=== PATIENT | male | born 1940 | race African-American/Black ===

== ENCOUNTER 2016-08-31 14:14 | Inpatient (IN) | payer MEDICARE, OTHER ==
[2016-08-31] VITALS (13 sets, daily range): BP systolic 110–189; BP diastolic 58–87; PULSE 76–107; RESP 18–28; TEMP 97.8; O2SAT 68–98
[~2016-08-31] VITALS: Ht 165.1 cm; Wt 59.3 kg
[~2016-08-31 14:14] MED LIST: ASPI81CH CHEW; CARD120C4 PO; HYDR-3535 PO; LOVA20TA PO; PRED5TAB PO
[2016-08-31] MEDS ORDERED: methylPREDNISolone SOD SUCC 125 MG/2 ML VIAL IVP ONE (14:30)
[2016-08-31] MEDS ORDERED: MAGNESIUM SULFATE 1 GM PREMIX 100 ML IV ONE (14:30)
[2016-08-31] MEDS ORDERED: SODIUM CHLOR 0.9% 1000 ML INJ 1,000 ML IV ONE (14:30)
[2016-08-31] MEDS ORDERED: SODIUM CHLORIDE 0.9% FLUSH 5 ML FLUSH IVF PRN (14:30)
[2016-08-31] MEDS: RESP: ALBUTEROL 2.5 MG/IPRATROPIUM 0.5 MG NEB (SCH) INH ×2 (14:39→22:52)
[2016-08-31 15:44] LABS: AUTOMATED NEUTROPHIL # 7.3 TH/MM3 (1.8-7.7); BASOPHIL % 0.2 % (0.0-2.0); EOSINOPHIL % 0.3 % (0.0-4.0); HEMATOCRIT 43.5 % (39.0-51.0); HEMO FLAGS DIFF FINAL; LYMPH % 17.8 % (9.0-44.0); LYMPHOCYTE # 1.9 TH/MM3 (1.0-4.8); MEAN CELL VOLUME 95.3 FL (80.0-100.0); MEAN CORPUSCULAR HEMOGLOBIN 31.4 PG (27.0-34.0); MONO % 12.4 % (0.0-8.0); NEUT % 69.3 % (16.0-70.0); PLATELET COUNT 261 TH/MM3 (150-450); RED BLOOD COUNT 4.56 MIL/MM3 (4.50-5.90); RED CELL DISTRIBUTION WIDTH 15.4 % (11.6-17.2); WHITE BLOOD COUNT 10.6 TH/MM3 (4.0-11.0)
[2016-08-31 16:01] LABS: APTT (PATIENT) 31.3 SEC (24.3-30.1); INTERNATIONAL NORMALIZED RATIO 0.9 RATIO; PROTHROMBIN TIME - PATIENT 10.1 SEC (9.8-11.6)
--- NOTE | 2016-08-31 16:14 | RADRPT ---
EXAM DATE/TIME: 08/31/2016 14:48 [facility] COMPARISON: CHEST SINGLE AP, August 04, 2016, 11:47. INDICATIONS : Short of breath. MEDICAL HISTORY : unobtainable SURGICAL HISTORY : unobtainable ENCOUNTER: Initial ACUITY: 1 day PAIN SCORE: 1/10 LOCATION: Bilateral upper chest FINDINGS: A single view of the chest demonstrates the lungs to be symmetrically aerated without evidence of mas s, infiltrate or effusion. The cardiomediastinal contours are unremarkable. Osseous structures are intact. CONCLUSION: Normal examination for a patient of this age. No significant change has occurred. Jan Monson MD on August 31, 2016 at 16:12 Board Certified Radiologist. This report was verified electronically.
[2016-08-31 16:30] LABS: ALKALINE PHOSPHATASE 116 U/L (45-117); ALT (GPT) 32 U/L (12-78); ANION GAP 5 MEQ/L (5-15); AST (GOT) 26 U/L (15-37); BICARBONATE 33.5 MEQ/L (21.0-32.0); BLOOD UREA NITROGEN 12 MG/DL (7-18); CHLORIDE 101 MEQ/L (98-107); CREATINE KINASE 144 U/L (39-308); GLOMERULAR FILTRATION RATE 131 ML/MIN (>89); MAGNESIUM 2.2 MG/DL (1.5-2.5); POTASSIUM 4.2 MEQ/L (3.5-5.1); SODIUM (NA) 139 MEQ/L (136-145); TOTAL BILIRUBIN ADULT 0.5 MG/DL (0.2-1.0)
[2016-08-31 16:42] LABS: CKMB 2.1 NG/ML (0.5-3.6)
--- NOTE | 2016-08-31 16:56 | PD ---
HPI Chief Complaint: Respiratory Distress Time Seen by Provider: 14:34 Travel History International Travel<30 days: No Contact w/Intl Traveler<30days: No Traveled to known affect area: No History of Present Illness HPI Patient is a 76-year-old male who presents to emergency room with complaints of shortness of breath as well as chest pain. Patient reports that his symptoms began 6 months ago, patient reports that he has history of COPD and is on 2 L of oxygen at all times. Patient reports that he has been having increased productive cough as well as wheezing, reports that he did try using nebulizer treatments with no relief of symptoms. Patient also reports that he has been having chest pain for the past 6 months, patient reports that chest pain is located in his "chest" - reports that he can't describe the pain. Patient with no fever/chills. Reports cough with congestion. PFSH Past Medical History Asthma: Yes Cardiac Catheterization: No Cardiovascular Problems: Yes High Cholesterol: Yes Chest Pain: Yes Congestive Heart Failure: No COPD: Yes Coronary Artery Disease: No Diabetes: No Diminished Hearing: No Gastrointestinal Disorders: Yes (ABDOMINAL PAIN) Hypertension: No Medical other: Yes (LOW BACK PAIN, OSTEOARTHRITIS) Musculoskeletal: Yes (OA) Neurologic: Yes Respiratory: Yes Myocardial Infarction: No Past Surgical History Abdominal Surgery: Yes (HERNIA REPAIR) Coronary Artery Bypass Graft: No Joint Replacement: No Pacemaker: No Social History Alcohol Use: No Tobacco Use: Yes (2 PACK A DAY FOR 50 YEARS) Substance Use: No Allergies-Medications (Allergen,Severity, Reaction): Coded Allergies: No Known Allergies (Verified , 08/31/16) Reported Meds & Prescriptions Reported Meds & Active Scripts Active Cardizem CD 24 HR (Diltiazem CD 24 HR) 120 Mg Caper 120 Mg PO DAILY Reported Prednisone 5 Mg Tab 5 Mg PO DAILY Lortab (Hydrocodone-Acetaminophen) 10-325 Mg Tab 1 Tab PO Q4H PRN Review of Systems General / Constitutional: No: Fever Eyes: No: Visual changes HENT: No: Headaches Cardiovascular: Positive: Chest Pain or Discomfort, Tachycardia, No: Irregular Rhythm Respiratory: Positive: Cough, Shortness of Breath, Wheezing Gastrointestinal: No: Abdominal Pain Genitourinary: No: Dysuria Musculoskeletal: No: Pain Skin: No Rash Neurologic: No: Weakness Psychiatric: No: Depression Endocrine: No: Polydipsia Hematologic/Lymphatic: No: Easy Bruising Physical Exam Narrative GENERAL: moderate distress SKIN: Warm and dry. HEAD: Atraumatic. Normocephalic. EYES: Pupils equal and round. No scleral icterus. No injection or drainage. ENT: No nasal bleeding or discharge. Mucous membranes pink and moist. NECK: Trachea midline. No JVD. CARDIOVASCULAR: Regular rate and rhythm. No murmur appreciated. RESPIRATORY: Patient with scattered wheezing bilaterally patient with increased accessory muscle use with breathing. GASTROINTESTINAL: Abdomen soft, non-tender, nondistended. Hepatic and splenic margins not palpable. MUSCULOSKELETAL: No obvious deformities. No clubbing. No cyanosis. No edema. NEUROLOGICAL: Awake and alert. No obvious cranial nerve deficits. Motor grossly within normal limits. Normal speech. PSYCHIATRIC: Appropriate mood and affect; insight and judgment normal. Data Data Last Documented VS Vital Signs Date Time Temp Pulse Resp B/P Pulse Ox O2 Delivery O2 Flow Rate FiO2 08/31/16 18:45 105 28 144/82 92 Nasal Cannula 4 08/31/16 14:20 50 08/31/16 14:18 97.8 Orders Complete Blood Count With Diff (08/31/16 14:30) Comprehensive Metabolic Panel (08/31/16 14:30) B-Type Natriuretic Peptide (08/31/16 14:30) D-Dimer (08/31/16 14:30) Act Partial Throm Time (Ptt) (08/31/16 14:30) Prothrombin Time / Inr (Pt) (08/31/16 14:30) Magnesium (Mg) (08/31/16 14:30) Ckmb (Isoenzyme) Profile (08/31/16 14:30) Troponin I (08/31/16 14:30) Urinalysis - C+S If Indicated (08/31/16 14:30) Influenzae A/B Antigen (08/31/16 14:30) Blood Culture (08/31/16 14:30) Iv Access Insert/Monitor (08/31/16 14:30) Ecg Monitoring (08/31/16 14:30) Oximetry (08/31/16 14:30) Oxygen Administration (08/31/16 14:30) Chest, Single Ap (08/31/16 14:30) Sodium Chloride 0.9% Flush (Ns Flush) (08/31/16 14:30) Methylprednisolone So Succ Inj (Solumedr (08/31/16 14:30) Albuterol-Ipratropium Neb (Duoneb Neb) (08/31/16 14:30) Resp Bipap / Cpap Non Invas Vt (08/31/16 ) Magnesium Sulfate 1 Gm Premix (Magnesium (08/31/16 14:30) Sodium Chlor 0.9% 1000 Ml Inj (Ns 1000 M (08/31/16 14:30) CKMB (08/31/16 14:30) CKMB% (08/31/16 14:30) Ct Pulmonary Angiogram (08/31/16 16:45) Arterial Blood Gas (Abg) (08/31/16 ) Albuterol Neb (Albuterol Neb) (08/31/16 17:00) Aspirin (Aspirin) (08/31/16 17:00) Electrocardiogram (08/31/16 14:27) Lactic Acid Sepsis Protocol (08/31/16 18:15) Iohexol 350 Inj (Omnipaque 350 Inj) (08/31/16 18:26) Admit Order (Ed Use Only) (08/31/16 18:58) Labs Laboratory Tests Test 08/31/16 08/31/16 14:30 18:00 White Blood Count 10.6 TH/MM3 Red Blood Count 4.56 MIL/MM3 Hemoglobin 14.3 GM/DL Hematocrit 43.5 % Mean Corpuscular Volume 95.3 FL Mean Corpuscular Hemoglobin 31.4 PG Mean Corpuscular Hemoglobin 33.0 % Concent Red Cell Distribution Width 15.4 % Platelet Count 261 TH/MM3 Mean Platelet Volume 8.5 FL Neutrophils (%) (Auto) 69.3 % Lymphocytes (%) (Auto) 17.8 % Monocytes (%) (Auto) 12.4 % Eosinophils (%) (Auto) 0.3 % Basophils (%) (Auto) 0.2 % Neutrophils # (Auto) 7.3 TH/MM3 Lymphocytes # (Auto) 1.9 TH/MM3 Monocytes # (Auto) 1.3 TH/MM3 Eosinophils # (Auto) 0.0 TH/MM3 Basophils # (Auto) 0.0 TH/MM3 CBC Comment DIFF FINAL Differential Comment Prothrombin Time 10.1 SEC Prothromb Time International 0.9 RATIO Ratio Activated Partial 31.3 SEC Thromboplast Time D-Dimer Quantitative (PE/DVT) 1.68 MG/L FEU Sodium Level 139 MEQ/L Potassium Level 4.2 MEQ/L Chloride Level 101 MEQ/L Carbon Dioxide Level 33.5 MEQ/L Anion Gap 5 MEQ/L Blood Urea Nitrogen 12 MG/DL Creatinine 0.71 MG/DL Estimat Glomerular Filtration 131 ML/MIN Rate Random Glucose 112 MG/DL Calcium Level 8.5 MG/DL Magnesium Level 2.2 MG/DL Total Bilirubin 0.5 MG/DL Aspartate Amino Transf 26 U/L (AST/SGOT) Alanine Aminotransferase 32 U/L (ALT/SGPT) Alkaline Phosphatase 116 U/L Total Creatine Kinase 144 U/L Creatine Kinase MB 2.1 NG/ML Troponin I 0.02 NG/ML B-Type Natriuretic Peptide 133 PG/ML Total Protein 7.2 GM/DL Albumin 3.2 GM/DL Blood Gas Puncture Site RT RADIAL Blood Gas Patient Temperature 98.6 Blood Gas HCO3 30 mmol/L Blood Gas Base Excess 3.6 mmol/L Blood Gas Oxygen Saturation 87 % Arterial Blood pH 7.28 Arterial Blood Partial 66 mmHg Pressure CO2 Arterial Blood Partial 84 mmHG Pressure O2 Arterial Blood Oxygen Content 17.2 Vol % Arterial Blood 5.7 % Carboxyhemoglobin Arterial Blood Methemoglobin 2.2 % Blood Gas Hemoglobin 13.9 G/DL Oxygen Delivery Device NASAL CANNULA Blood Gas Liter Flow 5 L/M [facility] Medical Decision Making Medical Screen Exam Complete: Yes Emergency Medical Condition: Yes Interpretation(s) EKG at 1427: Normal sinus rhythm at 90 bpm, QT/QTC 376/428, no acute ST-T wave changes Vital Signs Date Time Temp Pulse Resp B/P Pulse Ox O2 Delivery O2 Flow Rate FiO2 08/31/16 14:25 95 28 189/87 68 08/31/16 14:20 97 50 08/31/16 14:18 97.8 107 28 160/73 70 Room Air Laboratory Tests Test 08/31/16 14:30 White Blood Count 10.6 TH/MM3 (4.0-11.0) Red Blood Count 4.56 MIL/MM3 (4.50-5.90) Hemoglobin 14.3 GM/DL (13.0-17.0) Hematocrit 43.5 % (39.0-51.0) Mean Corpuscular Volume 95.3 FL (80.0-100.0) Mean Corpuscular Hemoglobin 31.4 PG (27.0-34.0) Mean Corpuscular Hemoglobin 33.0 % Concent (32.0-36.0) Red Cell Distribution Width 15.4 % (11.6-17.2) Platelet Count 261 TH/MM3 (150-450) Mean Platelet Volume 8.5 FL (7.0-11.0) Neutrophils (%) (Auto) 69.3 % (16.0-70.0) Lymphocytes (%) (Auto) 17.8 % (9.0-44.0) Monocytes (%) (Auto) 12.4 % (0.0-8.0) Eosinophils (%) (Auto) 0.3 % (0.0-4.0) Basophils (%) (Auto) 0.2 % (0.0-2.0) Neutrophils # (Auto) 7.3 TH/MM3 (1.8-7.7) Lymphocytes # (Auto) 1.9 TH/MM3 (1.0-4.8) Monocytes # (Auto) 1.3 TH/MM3 (0-0.9) Eosinophils # (Auto) 0.0 TH/MM3 (0-0.4) Basophils # (Auto) 0.0 TH/MM3 (0-0.2) CBC Comment DIFF FINAL Differential Comment Prothrombin Time 10.1 SEC (9.8-11.6) Prothromb Time International 0.9 RATIO Ratio Activated Partial 31.3 SEC Thromboplast Time (24.3-30.1) D-Dimer Quantitative (PE/DVT) 1.68 MG/L FEU (0.00-0.50) Sodium Level 139 MEQ/L (136-145) Potassium Level 4.2 MEQ/L (3.5-5.1) Chloride Level 101 MEQ/L (98-107) Carbon Dioxide Level 33.5 MEQ/L (21.0-32.0) Anion Gap 5 MEQ/L (5-15) Blood Urea Nitrogen 12 MG/DL (7-18) Creatinine 0.71 MG/DL (0.60-1.30) Estimat Glomerular Filtration 131 ML/MIN Rate (>89) Random Glucose 112 MG/DL (74-106) Calcium Level 8.5 MG/DL (8.5-10.1) Magnesium Level 2.2 MG/DL (1.5-2.5) Total Bilirubin 0.5 MG/DL (0.2-1.0) Aspartate Amino Transf 26 U/L (15-37) (AST/SGOT) Alanine Aminotransferase 32 U/L (12-78) (ALT/SGPT) Alkaline Phosphatase 116 U/L (45-117) Total Creatine Kinase 144 U/L (39-308) Creatine Kinase MB 2.1 NG/ML (0.5-3.6) Troponin I 0.02 NG/ML (0.02-0.05) B-Type Natriuretic Peptide 133 PG/ML (0-100) Total Protein 7.2 GM/DL (6.4-8.2) Albumin 3.2 GM/DL (3.4-5.0) Differential Diagnosis COPD exacerbation, PE, pneumonia, ACS, electrolyte abnormality, arrhythmia, pneumothorax Narrative Course Patient is a 76-year-old male who presents to emergency room with complaints of cough, congestion shortness breath with chest pain for the past 6 months. Patient reports the symptoms have been getting progressively worse over the past few days, reports that he has having increased work of breathing with chest pain. Patient was placed on cardiac care nurse upon arrival to the emergency room. EKG obtained. EKG with normal sinus rhythm with no acute ST segment or t wave changes. CBC, BMP, cardiac enzymes as well as chest x-ray ordered for patient. Patient was placed on BiPAP, patient was given IV Solu-Medrol as well as multiple neb treatments. ABG ordered for patient. CBC WBC 10.6 Hemoglobin 14.3 Hematocrit 43.5 Platelets 261 BMP Sodium 139 Chloride 101 Potassium 4.2 Carbon dioxide 33.5 BUN 12 Creatinine 0.71 Troponin 0.02 BNP 133 D dimer 1.68 Patient reevaluated, patient with continued wheezing on exam. Patient reports that he is feeling slightly better. Additional albuterol neb treatment ordered for patient. Patient with a positive d-dimer, PE study ordered for evaluation of possible PE. pt with pH7.280, pCO2 65.6, PO283.7 on 5liters NC pt with hypercapnea most likely from copd exacerbation, will place patient back on bipap and admit to icu Critical Care Narrative Aggregate critical care time was 30 minutes. Time to perform other separately billable procedures was not included in the critical care time. My time did not include minutes spent treating any other patients simultaneously or on activities that did not directly contribute to the patient's treatment. The services I provided to this patient were to treat and/or prevent clinically significant deterioration that could result in: , decompensation, deterioration I provided critical care services requiring my management, as noted below: Chart data review, documentation time, medication orders and management, vital sign assessments/reviewing monitor data, ordering and reviewing lab tests, ordering and interpreting/reviewing x-rays and diagnostic studies, care of the patient and discussion of the patient with the admitting physicians. Diagnosis Primary Impression: Hypercapnia with mixed acid-base disorder Additional Impressions: Chest pain Qualified Code: R07.9 - Chest pain, unspecified type COPD with exacerbation Admitting Information Admitting Physician Requests: Admit Eliana Munoz DO Aug 31, 2016 16:56
[2016-08-31] MEDS ORDERED: ASPIRIN 325 MG TAB PO ONE (17:00)
[2016-08-31] MEDS: RESP: ALBUTEROL 2.5 MG/3 ML NEB (SCH) INH (17:07)
[2016-08-31 18:14] LABS: BLOOD GAS BASE EXCESS 3.6 mmol/L (-2-2); BLOOD GAS CARBOXYHEMOGLOBIN 5.7 % (0-4); BLOOD GAS HCO3 30 mmol/L (22-26); BLOOD GAS METHEMOGLOBIN 2.2 % (0-2); BLOOD GAS O2 HGB SATURATION 87 % (90-100); BLOOD GAS OXYGEN CONTENT 17.2 Vol % (12.0-20.0); BLOOD GAS PCO2 66 mmHg (38-42); BLOOD GAS PO2 84 mmHG (61-120); BLOOD GAS TOTAL HGB 13.9 G/DL (12.0-16.0); CRITICAL VALUE YES; LITER FLOW 5 L/M; OXYGEN DEVICE NASAL CANNULA; TEMP CORR TO 98.6
[2016-08-31 18:15] LABS: DRAW SITE RT RADIAL; NUMBER OF ARTERIAL PUNCTURES 1; STAT YES; ULNAR PULSE PRESENT
[2016-08-31] MEDS ORDERED: IOHEXOL 350 MG/ML 10 ML VIAL (for RAD DIAG) IV ONE (18:26)
--- NOTE | 2016-08-31 18:53 | RADRPT ---
EXAM DATE/TIME: 08/31/2016 18:20 [facility] COMPARISON: No previous studies available for comparison. INDICATIONS : Shortness of breath and productive cough with chest pain for six months. IV CONTRAST: 75 cc Omnipaque 350 (iohexol) IV RADIATION DOSE: 6.6 CTDIvol (mGy) MEDICAL HISTORY : Chronic obstructive pulmonary disease. SURGICAL HISTORY : None. ENCOUNTER: Initial ACUITY: 4 - 6 months PAIN SCALE: 5/10 LOCATION: Bilateral chest TECHNIQUE: Volumetric scanning of the chest was performed using a pulmonary embolism protocol MIP images were re constructed. Using automated exposure control and adjustment of the mA and/or kV according to patien t size, radiation dose was kept as low as reasonably achievable to obtain optimal diagnostic quality images. FINDINGS: No filling defects identified to suggest pulmonary embolic disease. There is underlying severe emphys ronni. Minimal dependent atelectasis in the lungs. Calcifications in the liver, spleen and upper mesent chang lymph nodes most characteristic of remote granulomatous disease. CONCLUSION: 1. Negative for pulmonary embolus. 2. Severe centrilobular and bullous emphysema especially in the upper lungs. 3. Moderate coronary artery calcifications. José Miguel Ley MD on August 31, 2016 at 18:45 Board Certified Radiologist. This report was verified electronically.
[2016-08-31] MEDS ORDERED: MISCELLANEOUS NURSING INFORMATION XX SCH (19:30)
[2016-08-31] MEDS ORDERED: CHLORHEXIDINE GLUCONATE 2 % 1 PACK (2 CLOTHS) TOP PRN (19:30)
[2016-08-31] MEDS ORDERED: GLUCAGON 1 MG/ML VIAL OTHER PRN (19:30)
[2016-08-31] MEDS ORDERED: DEXTROSE 50% IN WATER 50 ML VIAL(D50) IV PUSH PRN (19:30)
[2016-08-31] MEDS: SODIUM CHLOR 0.9% 1000 ML INJ 1,000 ML IV SCH (20:06)
[2016-08-31] MEDS: ENOXAPARIN SODIUM 40 MG/0.4 ML SYRINGE SQ SCH (20:07)
[2016-08-31] MEDS: LEVOFLOXACIN 500 MG PREMIX INJ 100 ML IV SCH (20:08)
[2016-08-31] MEDS: BUDESONIDE-FORMOTEROL 160/4.5 MCG INHALER INH SCH (21:00)
[2016-08-31 23:09] LABS: BLOOD GAS CARBOXYHEMOGLOBIN 4.4 % (0-4); BLOOD GAS HCO3 30 mmol/L (22-26); BLOOD GAS METHEMOGLOBIN 1.7 % (0-2); BLOOD GAS O2 HGB SATURATION 91 % (90-100); BLOOD GAS OXYGEN CONTENT 17.6 Vol % (12.0-20.0); BLOOD GAS PCO2 59 mmHg (38-42); BLOOD GAS PO2 88 mmHG (61-120); BLOOD GAS TOTAL HGB 13.7 G/DL (12.0-16.0); TEMP CORR TO 98.6
[2016-08-31 23:11] LABS: CRITICAL VALUE YES; DRAW SITE LT RADIAL; FIO2 40 %; NUMBER OF ARTERIAL PUNCTURES 1; OXYGEN DEVICE IPAP12/EPAP5; ULNAR PULSE PRESENT
[2016-08-31 23:12] LABS: STAT YES
[2016-08-31] MEDS: methylPREDNISolone SOD SUCC 40 MG/1 ML VIAL IV PUSH SCH (23:26)
[2016-09-01] VITALS (15 sets, daily range): BP systolic 96–142; BP diastolic 53–81; PULSE 62–99; RESP 26–30; TEMP 97.5–98.5; O2SAT 93–100
[2016-09-01] MEDS: INSULIN NovoLIN REGULAR SUPPLEMENTAL SCALE SQ SCH ×5 (00:05→23:55)
[2016-09-01] MEDS: RESP: ALBUTEROL 2.5 MG/IPRATROPIUM 0.5 MG NEB (SCH) INH ×7 (00:49→23:54)
[2016-09-01] MEDS: CHLORHEXIDINE GLUCONATE 2 % 1 PACK (2 CLOTHS) TOP SCH (04:00)
[2016-09-01 04:14] LABS: AUTOMATED NEUTROPHIL # 7.1 TH/MM3 (1.8-7.7); BASOPHIL % 0.2 % (0.0-2.0); EOSINOPHIL % 0.1 % (0.0-4.0); HEMATOCRIT 39.2 % (39.0-51.0); HEMO FLAGS DIFF FINAL; LYMPH % 7.8 % (9.0-44.0); LYMPHOCYTE # 0.6 TH/MM3 (1.0-4.8); MEAN CELL VOLUME 95.1 FL (80.0-100.0); MEAN CORPUSCULAR HEMOGLOBIN 31.5 PG (27.0-34.0); MEAN CORPUSCULAR HGB CONC 33.1 % (32.0-36.0); MONO % 1.3 % (0.0-8.0); NEUT % 90.6 % (16.0-70.0); PLATELET COUNT 229 TH/MM3 (150-450); RED BLOOD COUNT 4.12 MIL/MM3 (4.50-5.90); RED CELL DISTRIBUTION WIDTH 15.1 % (11.6-17.2); WHITE BLOOD COUNT 7.8 TH/MM3 (4.0-11.0)
[2016-09-01 04:39] LABS: BICARBONATE 29.4 MEQ/L (21.0-32.0); MAGNESIUM 2.3 MG/DL (1.5-2.5); POTASSIUM 4.5 MEQ/L (3.5-5.1)
[2016-09-01] MEDS: methylPREDNISolone SOD SUCC 40 MG/1 ML VIAL IV PUSH SCH ×3 (05:39→21:11)
--- NOTE | 2016-09-01 06:23 | MH ---
cc: ROSANNA CABRALES M.D. DATE OF ADMISSION: 08/31/2016 DATE OF 1940 HISTORY OF PRESENT ILLNESS The patient is 76-year-old male with past medical history of COPD on 2 liters home oxygen continuously, hypertension, active tobacco use who presented to [facility] ED with complaints of shortness of breath associated with chest pain. The patient states that his shortness of breath began six months ago and has been progressively getting worse. He also reports productive cough, wheezing. He tried to use his nebulizer treatments with no relief of his symptoms. The patient denies any associated symptoms. He was initially placed on 5 liters oxygen and ABG was performed which showed acute hypercapnic respiratory acidosis with a pH of 7.28, CO2 66, pAO2 84, bicarb 30 and saturation of 87%. The patient was subsequently placed on a BiPap at 12/5 with 50% FIO2 and his current saturation is 95%. He remains an active smoker where he smokes two packs per day and has been a smoker for over 50 years. He denies any orthopnea, PND or edema of lower extremities. Chest x-ray showed no acute abnormality. The patient also underwent a CT angiogram of the chest which was negative for PE; however, it showed severe central lobular bolus emphysema in the upper lobes in addition to moderate coronary artery calcifications. In the ER he received Solu-Medrol 125 mg IV push along with bronchodilator treatment, magnesium sulfate and 1 liter of normal saline in addition to aspirin. He had an echocardiogram in July of last year which showed an EF of 55-60% without any regional wall motion abnormalities and pulmonary hypertension with a PA pressure of 59 mmHg. PAST MEDICAL HISTORY Significant for - 1. COPD on 2 liters home oxygen. 2. Hypertension. 3. Hyperlipidemia. 4. Osteoarthritis. PAST SURGICAL HISTORY Previous hernia repair. SOCIAL HISTORY Nondrinker. Active smoker where he smokes two packs a day for 50+ years. ALLERGIES No known drug allergies. REPORTED MEDICATIONS 1. Prednisone 5 mg daily. 2. Lortab. 3. Cardizem CD. FAMILY HISTORY Noncontributory. REVIEW OF SYSTEMS As per HPI. The rest of the review of symptoms unremarkable. PHYSICAL EXAMINATION GENERAL: A 76-year-old male lying in bed in mild respiratory distress on the BiPap currently, 12/5 with 50% FIO2. HEENT: Atraumatic, normocephalic. Pupils equal, round, reactive to light and accommodation. Extraocular muscles intact. Conjunctivae pink. Nonicteric sclerae. Oral mucosa within normal. NECK: Supple. No JVD, adenopathy or thyromegaly. Trachea in the midline. CARDIOVASCULAR: Tachycardiac. Normal S1 and S2. No murmurs, rubs or gallops noted. PULMONARY EXAM: Bilateral equal air entry with a few scattered wheezing, overall diminished. ABDOMEN: Soft, nontender, no distension. Positive bowel sounds. EXTREMITIES: No cyanosis, clubbing or edema. NEURO: No focal sensory deficit. LABORATORY DATA Sodium 139, potassium 4.2, chloride 101, CO2 33, BUN 12, creatinine 0.71, glucose 112,. BNP 133. Troponin 0.02. WBC 10.6, hemoglobin 14.3, hematocrit 43, platelet count 261. INR 0.9. PT 10.1, PTT 31.3. RADIOGRAPHY STUDIES CT angiogram of the chest negative for PE; however, it showed severe central lobular bullous emphysema in the upper lungs. EKG showed normal sinus rhythm at 90 beats per minute. No acute ST wave changes. IMPRESSION 1. Acute hypercapnic and hypoxemic respiratory failure. 2. Active tobacco use. 3. Hypertension. 4. Moderate pulmonary hypertension. RECOMMENDATIONS 1. Monitor neuro status and avoid any sedatives. 2. Continue with oxygen and maintain sats above 92%. 3. Bronchodilators in the form of DuoNeb q. 4 + q. 2 p.r.n. for shortness of breath. In addition will place on Symbicort 160/4.5 two puffs inhaler q. 12 hours and continue with Solu-Medrol 60 mg IV q. 8. 4. Continue with noninvasive positive pressure ventilation for respiratory distress. We will repeat ABG on a BiPap. If there is any worsening in clinical status, we will proceed with intubation and mechanical ventilation. 5. Monitor heart rate and blood pressure and maintain MAP greater than 65 mmHg. Echocardiogram was performed on August 05 which showed an EF of 55-60% with a PA pressure of 59 mmHg. 6. Monitor renal function and electrolyte replacement as needed. Place on IV fluids NS at 75 mL/hour. 7. Keep n.p.o. for now until respiratory status improves. 8. Place on empiric antibiotics in the form of Levaquin for COPD exacerbation. Monitor for signs of infection which include fever and WBC. 9. Sliding scale insulin for glycemic control as the patient will be on IV steroids. 10. Monitor CBC. 11. GI prophylaxis with Protonix 40 mg daily and DVT prophylaxis with SCDs and Lovenox 40 mg subcu daily. Critical care time 50 minutes excluding procedures. MD LIZ Schaefer/ORLIN /7:26 PM /6:08 AM
--- NOTE | 2016-09-01 08:53 | HHI.CCPN ---
Subjective Remarks/Hospital Course The patient is 76-year-old male with past medical history of COPD on 2 liters home oxygen continuously, hypertension, active tobacco use who presented to [facility] ED with complaints of shortness of breath associated with chest pain. The patient states that his shortness of breath began six months ago and has been progressively getting worse. He also reports productive cough, wheezing. He tried to use his nebulizer treatments with no relief of his symptoms. The patient denies any associated symptoms. He was initially placed on 5 liters oxygen and ABG was performed which showed acute hypercapnic respiratory acidosis with a pH of 7.28, CO2 66, pAO2 84, bicarb 30 and saturation of 87%. The patient was subsequently placed on a BiPap at 12/5 with 50% FIO2 and his current saturation is 95%. He remains an active smoker where he smokes two packs per day and has been a smoker for over 50 years. He denies any orthopnea, PND or edema of lower extremities. Chest x-ray showed no acute abnormality. The patient also underwent a CT angiogram of the chest which was negative for PE; however, it showed severe central lobular bolus emphysema in the upper lobes in addition to moderate coronary artery calcifications. In the ER he received Solu-Medrol 125 mg IV push along with bronchodilator treatment, magnesium sulfate and 1 liter of normal saline in addition to aspirin. He had an echocardiogram in July of last year which showed an EF of 55-60% without any regional wall motion abnormalities and pulmonary hypertension with a PA pressure of 59 mmHg. 09/01 No chest pain overnight. EKG normal sinus rhythm without ST elevation. The patient was maintain on BiPAP overnight O2 sat 97-99%. Dyspnea resolved. Plan to wean to O2 via nasal cannula today Objective Vital Signs Date Time Temp Pulse Resp B/P Pulse Ox O2 Delivery O2 Flow Rate FiO2 09/01/16 06:00 62 09/01/16 04:00 98.3 26 111/61 94 09/01/16 02:50 Bi-Pap 40 09/01/16 02:30 15.00 Result Diagram: 09/01/16 0330 09/01/16 033 Other Results Microbiology Date/Time Procedure Status Source Growth 08/31/16 14:45 Influenza Types A,B Antigen (ROXI) - Final Complete Nasal Aspirate NEGATIVE FOR FLU A AND B ANTIGEN.... Laboratory Tests Test 08/31/16 08/31/16 18:00 22:49 Blood Gas Puncture Site RT RADIAL LT RADIAL Blood Gas Patient Temperature 98.6 98.6 Blood Gas HCO3 30 mmol/L 30 mmol/L (22-26) (22-26) Blood Gas Base Excess 3.6 mmol/L 4.0 mmol/L (-2-2) (-2-2) Blood Gas Oxygen Saturation 87 % (90-100) 91 % (90-100) Arterial Blood pH 7.28 7.32 (7.380-7.420) (7.380-7.420) Arterial Blood Partial 66 mmHg (38-42) 59 mmHg (38-42) Pressure CO2 Arterial Blood Partial 84 mmHG 88 mmHG Pressure O2 (61-120) (61-120) Arterial Blood Oxygen Content 17.2 Vol % 17.6 Vol % (12.0-20.0) (12.0-20.0) Arterial Blood 5.7 % (0-4) 4.4 % (0-4) Carboxyhemoglobin Arterial Blood Methemoglobin 2.2 % (0-2) 1.7 % (0-2) Blood Gas Hemoglobin 13.9 G/DL 13.7 G/DL (12.0-16.0) (12.0-16.0) Oxygen Delivery Device NASAL CANNULA IPAP12/EPAP5 Blood Gas Liter Flow 5 L/M Blood Gas Inspired Oxygen 40 % Imaging Last Impressions CT Angiography 08/31/16 1645 Signed Impressions: Service Date/Time: Wednesday, August 31, 2016 18:20 - CONCLUSION: 1. Negative for pulmonary embolus. 2. Severe centrilobular and bullous emphysema especially in the upper lungs. 3. Moderate coronary artery calcifications. José Miguel Ley MD Chest X-Ray 08/31/16 1430 Signed Impressions: Service Date/Time: Wednesday, August 31, 2016 14:48 - CONCLUSION: Normal examination for a patient of this age. No significant change has occurred. Jan Monson MD Objective Remarks GENERAL: male appearing under nourished and older than stated age. SKIN: Warm and dry. HEAD: Atraumatic. Normocephalic. EYES: Pupils equal and round. No scleral icterus. No injection or drainage. ENT: No nasal bleeding or discharge. Mucous membranes pink and moist. Currently on BiPAP NECK: Trachea midline. No JVD. CARDIOVASCULAR: Normal rate, regular rhythm. S1,S2. RESPIRATORY: No accessory muscle use. Clear to auscultation. Breath sounds equal bilaterally. Respiratory rate 28 BiPAP 12/5 GASTROINTESTINAL: Abdomen soft, non-tender, nondistended. No guarding. MUSCULOSKELETAL: Extremities without clubbing, cyanosis, or edema. No obvious deformities. NEUROLOGICAL: Awake and alert. RASS 0. No gross focal/sensory deficits. Follows commands in all 4 extremities. Urinary Catheter: No Vascular Central Line Catheter: No A/P Assessment and Plan Neurologic: Pain secondary to osteoarthritis -Resume Lortab 10/325 every 4 hour when necessary (home med) -GCS 15, alert and oriented Respiratory: Acute hypercapnic respiratory acidosis-resolved COPD exacerbation Home O2 dependency 2LPM/ NC Emphysema Smoker abuse Pulmonary hypertension -Greater than 28-miub-yxtb smoking history, patient counseled on smoking cessation -Obtain O2 sat greater than 92%, on BiPAP FiO2 0.40 12/ O2 saturation 97%, will continue to wean -Nicotine patch, medium dose -Currently on BiPAP wean O2 to nasal cannula -CT pulmonary 08/31-negative angiogram -CXR- 08/31-emphysematous changes -Methylprednisolone 60 mg every 8 hours -Scheduled duo nebs every 6 hours, every 2 hours when necessary -PAP 59, avoid hypercarbic episodes Cardiovascular: Hypertension Angina-resolved -Continue Cardizem CD 120mg/day (home med) -Maintain MAP greater than 65mmHg -Received one-time dose of aspirin in ED 08/31 Renal: No acute issues -- Strict I/Os FEN/GI: -Normal saline at 75 cc/hour -Begin clear liquid diet today Heme/ID: -Monitor CBC, hemoglobin 13 -Continue Levofloxacin 500 mg daily Endocrine: -Glucose monitoring every 6 hours per ICU protocol -- SSI Prophylaxis: GI Prophylaxis Protonix DVT Prophylaxis -- SCDs Lovenox Lines: Peripheral IVs 2. Dispo: Level 2 Physician Megha Delgado MD Sep 01, 2016 08:53
[2016-09-01] MEDS ORDERED: predniSONE 5 MG TAB PO SCH (09:00)
[2016-09-01] MEDS: PANTOPRAZOLE SODIUM 40 MG VIAL IV SCH (09:28)
[2016-09-01] MEDS: SODIUM CHLOR 0.9% 1000 ML INJ 1,000 ML IV SCH (09:29)
[2016-09-01] MEDS: ACETAMINOPHEN/HYDROcodone 325 MG/10 MG TAB PO PRN ×2 (10:43→19:57)
[2016-09-01] MEDS: BUDESONIDE-FORMOTEROL 160/4.5 MCG INHALER INH SCH ×2 (10:44→19:59)
[2016-09-01] MEDS: DILTIAZEM-CD 120 MG CAP ER PO SCH (10:46)
[2016-09-01] MEDS: NICOTINE 14 MG/24 HR PATCH TD SCH (10:48)
[2016-09-01] MEDS ORDERED: MAGNESIUM HYDROXIDE SUSP 30 ML CUP PO PRN (12:00)
--- NOTE | 2016-09-01 18:28 | EKG ---
Date Performed: 08/31/2016 Time Performed: 14:27:22 PTAGE: 76 years EKG: Sinus rhythm WITH OCCASIONAL VENTRICULAR PREMATURE COMPLEXES POSSIBLE LEFT ATRIAL ENLARGEMENT Baseline artifact. Since previous tracing, no significant change noted ABNORMAL ECG PREVIOUS TRACING : 08/05/2016 00.21 DOCTOR: Iqra Pierre Interpretating Date/Time 09/01/2016 18:26:52
[2016-09-01] MEDS: DOCUSATE SODIUM 100 MG CAP PO SCH (19:58)
[2016-09-01] MEDS: SENNOSIDES 8.6 MG TAB PO SCH (19:58)
[2016-09-01] MEDS: ENOXAPARIN SODIUM 40 MG/0.4 ML SYRINGE SQ SCH (19:59)
[2016-09-01] MEDS: LEVOFLOXACIN 500 MG PREMIX INJ 100 ML IV SCH (19:59)
[2016-09-02] VITALS (29 sets, daily range): BP systolic 121–157; BP diastolic 66–87; PULSE 81–117; RESP 18–34; TEMP 97.1–98.6; O2SAT 90–95
[2016-09-02] MEDS: ACETAMINOPHEN/HYDROcodone 325 MG/10 MG TAB PO PRN (02:39)
[2016-09-02] MEDS: RESP: ALBUTEROL 2.5 MG/IPRATROPIUM 0.5 MG NEB (SCH) INH ×4 (03:23→15:21)
[2016-09-02] MEDS: CHLORHEXIDINE GLUCONATE 2 % 1 PACK (2 CLOTHS) TOP SCH (03:50)
[2016-09-02] MEDS: INSULIN NovoLIN REGULAR SUPPLEMENTAL SCALE SQ SCH ×2 (06:00→12:18)
[2016-09-02] MEDS: methylPREDNISolone SOD SUCC 40 MG/1 ML VIAL IV PUSH SCH (06:23)
[2016-09-02 06:32] LABS: MEAN CELL VOLUME 94.3 FL (80.0-100.0); MEAN CORPUSCULAR HEMOGLOBIN 31.3 PG (27.0-34.0); MEAN CORPUSCULAR HGB CONC 33.2 % (32.0-36.0); PLATELET COUNT 259 TH/MM3 (150-450); RED BLOOD COUNT 4.35 MIL/MM3 (4.50-5.90); RED CELL DISTRIBUTION WIDTH 14.9 % (11.6-17.2); REVIEW FLAG FINAL; WHITE BLOOD COUNT 9.7 TH/MM3 (4.0-11.0)
[2016-09-02 06:52] LABS: BICARBONATE 30.7 MEQ/L (21.0-32.0); MAGNESIUM 2.5 MG/DL (1.5-2.5); POTASSIUM 4.2 MEQ/L (3.5-5.1)
[2016-09-02] MEDS: REMOVE OLD PATCH TD SCH (09:00)
[2016-09-02] MEDS: NICOTINE 14 MG/24 HR PATCH TD SCH (09:13)
[2016-09-02] MEDS: PANTOPRAZOLE SODIUM 40 MG VIAL IV SCH (09:13)
[2016-09-02] MEDS: DILTIAZEM-CD 120 MG CAP ER PO SCH (09:14)
[2016-09-02] MEDS: SENNOSIDES 8.6 MG TAB PO SCH ×2 (09:14→23:50)
[2016-09-02] MEDS: DOCUSATE SODIUM 100 MG CAP PO SCH ×2 (09:14→20:25)
[2016-09-02] MEDS: RESP: ALBUTEROL 2.5 MG/IPRATROPIUM 0.5 MG NEB (PRN) INH (09:44)
[2016-09-02] MEDS ORDERED: INFLUENZA VIRUS VACCINE (QUADRIVALENT) 0.5 ML SYR IM ONE (10:00)
[2016-09-02] MEDS ORDERED: PNEUMOCOCCAL POLYVALENT INJ 25 MCG/0.5 ML SYR IM ONE (10:00)
[2016-09-02] MEDS: BUDESONIDE-FORMOTEROL 160/4.5 MCG INHALER INH SCH ×2 (12:12→20:26)
[2016-09-02] MEDS ORDERED: methylPREDNISolone SOD SUCC 40 MG/1 ML VIAL IV PUSH SCH ×2 (14:00→21:00)
--- NOTE | 2016-09-02 16:29 | HHI.PR ---
Subjective Remarks Patient seen this afternoon around 3 PM. Says he feels better than on admission. Denies any chest pain. Denies any shortness of breath. Denies any nausea or vomiting. She feels like he might be able to go home tomorrow. He does have an oxygen concentrator at home. He does report that he has not had a bowel movement in weeks. Nursing reports no bowel movement during admission. Objective Vital Signs Date Time Temp Pulse Resp B/P Pulse Ox O2 Delivery O2 Flow Rate FiO2 09/02/16 16:20 104 09/02/16 15:30 98.4 106 18 142/70 92 09/02/16 15:03 110 09/02/16 14:07 117 09/02/16 13:00 117 09/02/16 12:00 103 09/02/16 11:55 98.6 107 18 143/66 90 09/02/16 11:00 97 09/02/16 10:00 108 09/02/16 09:00 93 09/02/16 08:15 98.4 96 22 147/79 92 09/02/16 08:00 104 09/02/16 07:44 92 Nasal Cannula 2.00 09/02/16 07:30 92 Nasal Cannula 3.00 09/02/16 07:00 88 09/02/16 06:00 81 09/02/16 05:00 83 09/02/16 04:30 84 09/02/16 04:30 98.0 86 18 143/77 95 09/02/16 04:30 Nasal Cannula 3.00 09/02/16 04:00 92 09/02/16 03:00 91 09/02/16 02:00 87 09/02/16 01:30 87 09/02/16 01:30 91 Nasal Cannula 3.00 09/02/16 01:30 98.1 87 18 143/71 91 09/02/16 00:00 98.3 85 34 121/66 93 09/02/16 00:00 84 09/01/16 22:00 91 09/01/16 20:01 93 Nasal Cannula 3.00 09/01/16 20:00 86 09/01/16 20:00 98.5 86 26 126/80 94 09/01/16 19:00 94 Nasal Cannula 3.00 09/01/16 18:00 94 I/O 09/01/16 09/01/16 09/01/16 09/02/16 09/02/16 09/02/16 07:00 15:00 23:00 07:00 15:00 23:00 Intake Total 734 ml 1283 ml 340 ml 200 ml Output Total 300 ml 250 ml 200 ml 700 ml Balance 434 ml 1033 ml 140 ml -500 ml Intake Oral 500 ml 240 ml 200 ml IV Total 734 ml 783 ml 100 ml Output Urine Total 300 ml 250 ml 200 ml 700 ml Stool Total 0 ml # Bowel Movements 0 0 0 Result Diagram: 09/02/1655409/02/16554 Objective Remarks GENERAL: sitting up in bed. Appears comfortable. Breathing comfortably SKIN: Warm and dry. HEAD: Normocephalic. EYES: No scleral icterus. No injection or drainage. NECK: Supple, trachea midline. No JVD CARDIOVASCULAR: Regular rate and rhythm without murmurs, gallops, or rubs. RESPIRATORY: Breath sounds equal bilaterally. No accessory muscle use. GASTROINTESTINAL: Abdomen slightly distended. Hyperresonant. Nontender. Positive bowel sounds. No rebound or guarding. MUSCULOSKELETAL: No cyanosis, or edema. BACK: Nontender without obvious deformity. No CVA tenderness. A/P Assessment and Plan //Acute hypercapnic respiratory acidosis-resolved //COPD exacerbation //Home O2 dependency 2LPM/ NC //Emphysema //Smoker abuse //Pulmonary hypertension -Greater than 75-feem-nwiw smoking history, patient counseled on smoking cessation -Obtain O2 sat greater than 92%, on BiPAP FiO2 0.40 12 O2 saturation 97%, will continue to wean -Nicotine patch, medium dose -Currently on BiPAP wean O2 to nasal cannula -CT pulmonary 08/31-negative angiogram -CXR- 08/31-emphysematous changes -09/02Decrease Methylprednisolone to 40 mg every 8 hours -cont Scheduled duo nebs every 6 hours, every 2 hours when necessary -PAP 59, avoid hypercarbic episodes -Continue levofloxacin -06/02. Shortness of breath much improved. Decrease Solu-Medrol. Plan for transition to prednisone. Pulmonology consulted for assistance regarding pulmonary hypertension.. //Hypertension //History of SVT. //Possible Angina-resolved -Continue Cardizem CD 120mg/day (home med) -Maintain MAP greater than 65mmHg -Received one-time dose of aspirin in ED 08/31 //Chronic Pain secondary to osteoarthritis -cont Lortab 10/325 every 4 hour when necessary (home med) //Constipation. lax ordered. //Prophylaxis: GI Prophylaxis: Protonix while on IV steroids DVT Prophylaxis-- SCDs, Lovenox Discharge Planning Possible discharge home in the next 1-2 days. Agusto Uribe MD Sep 02, 2016 16:29
[2016-09-02] MEDS ORDERED: DOCUSATE SODIUM 50 MG/SENNA 8.6 MG TAB PO ONE (16:30)
[2016-09-02] MEDS ORDERED: MAGNESIUM HYDROXIDE SUSP 30 ML CUP PO ONE (16:30)
[2016-09-02] MEDS ORDERED: BISACODYL 10 MG SUPP RECTAL ONE (16:30)
[2016-09-02] MEDS ORDERED: DILTIAZEM HCL 30 MG TAB PO ONE (17:15)
--- NOTE | 2016-09-02 18:01 | RADRPT ---
EXAM DATE/TIME: 09/02/2016 17:15 [place] COMPARISON: No previous studies available for comparison. INDICATIONS : Abdominal distention. MEDICAL HISTORY : Chronic obstructive pulmonary disease. SURGICAL HISTORY : None. ENCOUNTER: Subsequent ACUITY: 3 days PAIN SCORE: 6/10 LOCATION: Abdomen, all quadrants. FINDINGS: There is respiratory motion of the diaphragms. Bony structures as visualized appear intact with no si gnificant distress calcifications. Air is noted in mid abdominal and left upper quadrant loops of sma ll bowel nonspecific. CONCLUSION: Nonspecific bowel gas pattern. Jan Monson MD on September 02, 2016 at 17:58 Board Certified Radiologist. This report was verified electronically.
[2016-09-02] MEDS: ENOXAPARIN SODIUM 40 MG/0.4 ML SYRINGE SQ SCH (20:25)
--- NOTE | 2016-09-02 22:01 | MB ---
cc: Rodolfo JARAMILLO M.D. DATE OF CONSULTATION: 09/02/2016 HISTORY Mr. Can is a 76-year-old black male with a history of COPD on oxygen continuously at home and continues to smoke about a pack of cigarettes per day. He has had previous hospitalizations. Presented on this occasion with acute respiratory distress. CT angiogram revealed no pulmonary embolism but very severe centrilobular emphysema with bullae and no pneumonia or heart failure, but pCO2 was 66 with a pH 7.28 and a pO2 of 84. He was placed on BiPAP with improvement and is currently back on nasal oxygen with sats of 90-92% on 3 liters. The patient says he just got progressively more short of breath. He had had no chest pain, no unusual cough or purulent sputum, had had no hemoptysis. As I mentioned, he continues to smoke and he says he is chronically short of breath. He knows he needs to quit. ADDITIONAL PAST HISTORY Hypertension and osteoarthritis. He has had a previous hernia repair. No significant prior cardiovascular history. He has had an echocardiogram as recently as July with a normal EF and pulmonary artery pressures are elevated. SOCIAL HISTORY Smoking noted. Denies any alcohol use. ALLERGIES NONE KNOWN. REVIEW OF SYSTEMS He denies nausea, vomiting, chronic reflux disease, abdominal pain, recent diarrhea, swelling in his legs, orthopnea or PND. He is chronically short of breath though. PHYSICAL EXAMINATION GENERAL: A frail-appearing, black male in no distress at rest. VITAL SIGNS: Afebrile, pulse is 90, blood pressure 140/80, sat 92%, respirations 18-22. HEENT: Sclerae anicteric. Mucous membranes are moist. NECK: His neck veins are flat. RESPIRATORY: Without wheezing. No basilar rales. No rhonchi. HEART: Regular rhythm. No harsh murmur. ABDOMEN: Soft. EXTREMITIES: No peripheral edema or calf tenderness. DISCUSSION Mr. Can presented again with acute respiratory failure, responded quickly to aerosolized bronchodilators, antibiotics and corticosteroids along with BiPAP. He realizes he needs to quit smoking or these problems are not going to resolve or improve. At this point, I would continue the current therapy for 24 hours and then consider a switch to oral. He does have a regular physician Dr. Prather with whom he can followup as an outpatient. Further diagnostic and/or therapeutic intervention will depend on his ongoing clinical course. R. MD ORQUIDEA Amin/BJPaul /6:22 PM /9:37 PM
[2016-09-02] MEDS: LEVOFLOXACIN 500 MG PREMIX INJ 100 ML IV SCH (23:49)
[2016-09-03] VITALS (30 sets, daily range): BP systolic 129–152; BP diastolic 65–77; PULSE 73–108; RESP 20–22; TEMP 97.9–98.8; O2SAT 92–95
[2016-09-03] MEDS: RESP: ALBUTEROL 2.5 MG/IPRATROPIUM 0.5 MG NEB (PRN) INH (02:27)
[2016-09-03] MEDS: CHLORHEXIDINE GLUCONATE 2 % 1 PACK (2 CLOTHS) TOP SCH (04:00)
[2016-09-03 06:33] LABS: AUTOMATED NEUTROPHIL # 8.1 TH/MM3 (1.8-7.7); BASOPHIL % 0.3 % (0.0-2.0); HEMATOCRIT 39.8 % (39.0-51.0); HEMO FLAGS AUTO DIFF; LYMPH % 3.8 % (9.0-44.0); LYMPHOCYTE # 0.3 TH/MM3 (1.0-4.8); MEAN CELL VOLUME 93.5 FL (80.0-100.0); MEAN CORPUSCULAR HEMOGLOBIN 32.2 PG (27.0-34.0); MEAN CORPUSCULAR HGB CONC 34.4 % (32.0-36.0); MONO % 6.3 % (0.0-8.0); NEUT % 89.6 % (16.0-70.0); PLATELET COUNT 272 TH/MM3 (150-450); RED BLOOD COUNT 4.25 MIL/MM3 (4.50-5.90); RED CELL DISTRIBUTION WIDTH 15.4 % (11.6-17.2); WHITE BLOOD COUNT 9.1 TH/MM3 (4.0-11.0)
[2016-09-03 07:02] LABS: BICARBONATE 34.6 MEQ/L (21.0-32.0); POTASSIUM 4.3 MEQ/L (3.5-5.1)
[2016-09-03] MEDS: RESP: ALBUTEROL 2.5 MG/IPRATROPIUM 0.5 MG NEB (SCH) INH ×4 (07:52→20:46)
[2016-09-03 08:02] LABS: BANDS 16 % (0-6); POLYS (SEG NEUTROPHILS) 72 % (16-70); WBC DIFF SAMPLE 100
[2016-09-03 08:03] LABS: PLATELET ESTIMATE SMEAR NORMAL (NORMAL); PLATELET MORPHOLOGY NORMAL (NORMAL)
[2016-09-03 08:04] LABS: SCAN/DIFF FINAL DIFF MANUAL
[2016-09-03] MEDS ORDERED: predniSONE 50 MG TAB PO SCH (09:00)
[2016-09-03] MEDS: BUDESONIDE-FORMOTEROL 160/4.5 MCG INHALER INH SCH ×2 (09:08→20:32)
[2016-09-03] MEDS: PANTOPRAZOLE SODIUM 40 MG VIAL IV SCH (09:08)
[2016-09-03] MEDS: DOCUSATE SODIUM 100 MG CAP PO SCH ×2 (09:08→20:32)
[2016-09-03] MEDS: DILTIAZEM-CD 180 MG CAP ER PO SCH (09:08)
[2016-09-03] MEDS: SENNOSIDES 8.6 MG TAB PO SCH ×2 (09:08→20:32)
[2016-09-03] MEDS: REMOVE OLD PATCH TD SCH (09:08)
[2016-09-03 16:50] LABS: BLOOD GAS BASE EXCESS 7.8 mmol/L (-2-2); BLOOD GAS CARBOXYHEMOGLOBIN 1.3 % (0-4); BLOOD GAS HCO3 32 mmol/L (22-26); BLOOD GAS O2 HGB SATURATION 93 % (90-100); BLOOD GAS OXYGEN CONTENT 18.9 Vol % (12.0-20.0); BLOOD GAS PCO2 48 mmHg (38-42); BLOOD GAS PO2 77 mmHg (61-120); BLOOD GAS TOTAL HGB 14.4 G/DL (12.0-16.0); CRITICAL VALUE NO; DRAW SITE RT RADIAL; LITER FLOW 4 L/M; NUMBER OF ARTERIAL PUNCTURES 1; OXYGEN DEVICE NASAL CANNULA; STAT NO; TEMP CORR TO 98.6; ULNAR PULSE PRESENT
--- NOTE | 2016-09-03 17:41 | MB ---
cc: AARON KABA DATE OF CONSULTATION 09/03/16 HISTORY OF PRESENT ILLNESS Mr. Can is a 76 year old black male with history of chronic obstructive pulmonary disease and smoking. He presented with increased shortness of breath. He was hypoxemic. He was placed on BiPAP and improved subsequently with bronchodilators. He has not had any chest pain. He has not had any cough. He has not had any peripheral edema. PAST MEDICAL HISTORY 1. Chronic obstructive pulmonary disease 2. Emphysema 3. Asthma 4. Abdominal pain 5. Low back pain 6. Osteoarthritis 7. History of hernia repair. No history of diabetes mellitus, hypertension, dyslipidemia, coronary artery disease or cerebrovascular accident. MEDICATIONS 1. Prednisone 2. Diltiazem 180 mg a day 3. Albuterol inhaler 4. Colace 5. Senokot 6. Protonix 7. Symbicort 8. Levofloxacin 9. Lovenox ALLERGIES None. SOCIAL HISTORY The patient is a smoker. He does not drink alcohol. FAMILY HISTORY Negative for heart disease in direct relatives. REVIEW OF SYSTEMS Otherwise negative. PHYSICAL EXAMINATION VITAL SIGNS: Blood pressure 137/65, pulse 96 and regular. HEENT: Negative, 2+ carotid upstrokes, no bruits. LUNGS: Clear. HEART: Regular with no murmurs, rubs or gallops ABDOMEN: Soft, no bruits. EXTREMITIES: Without edema, 2+ distal pulses. NEUROLOGIC: Grossly nonfocal. CARDIOLOGY STUDIES Electrocardiogram was reviewed and showed normal sinus rhythm, left axis, left anterior fascicular block, no acute changes. Echocardiogram on 08/05 showed preserved left ventricular systolic function with an ejection fraction of 55-60%. No wall motion abnormalities, moderate tricuspid regurgitation, and moderate to severe pulmonary hypertension. LABORATORY DATA Hemoglobin 13.7, potassium 4.3, creatinine 0.6, troponin negative. DIAGNOSES 1. Acute respiratory failure 2. Severe chronic obstructive pulmonary disease 3. Sinus tachycardia 4. Hypertension 5. Smoking. DISPOSITION Mr. Can has responded to his therapy. His shortness of breath is significantly improved. He had an episode of sinus tachycardia yesterday which is now improved and was likely related to his medications and acute illness. He will be monitored on telemetry. I anticipate discharge home soon since his condition is significantly improved. He was strongly encouraged to quit smoking. He will follow up with Dr. Prather, his primary physician, in his office after discharge. MD JOSE Huffman /1:34 PM /5:27 PM [facility]
[2016-09-03] MEDS: ENOXAPARIN SODIUM 40 MG/0.4 ML SYRINGE SQ SCH (20:31)
[2016-09-03] MEDS: LEVOFLOXACIN 500 MG PREMIX INJ 100 ML IV SCH (20:31)
--- NOTE | 2016-09-03 23:52 | HHI.PR ---
Subjective Remarks patient seen today around noon. He says he is feeling better. Positive bowel movement. Says he feels like going home tomorrow. Objective Vital Signs Date Time Temp Pulse Resp B/P Pulse Ox O2 Delivery O2 Flow Rate FiO2 09/03/16 23:00 98.6 101 20 145/77 94 09/03/16 23:00 108 09/03/16 22:00 106 09/03/16 21:00 98 09/03/16 20:46 94 Nasal Cannula 4.00 09/03/16 20:00 91 09/03/16 20:00 95 Nasal Cannula 4.00 Humidified 09/03/16 20:00 98.8 96 22 147/76 95 09/03/16 19:00 92 09/03/16 18:04 84 09/03/16 17:00 92 09/03/16 16:00 98 09/03/16 15:30 98.8 96 20 129/70 93 09/03/16 15:00 91 09/03/16 14:00 97 09/03/16 13:00 101 09/03/16 12:20 98 09/03/16 11:23 97.9 96 20 137/65 95 09/03/16 11:22 108 09/03/16 10:36 102 09/03/16 09:29 102 09/03/16 08:10 90 09/03/16 07:55 94 Nasal Cannula 4.00 09/03/16 07:52 94 Nasal Cannula 4.00 Humidified 09/03/16 07:51 98.1 93 22 148/74 94 09/03/16 07:00 93 09/03/16 06:00 73 09/03/16 05:00 75 09/03/16 04:00 78 09/03/16 03:00 84 09/03/16 03:00 81 21 152/66 95 09/03/16 02:28 92 Nasal Cannula 4.00 09/03/16 02:00 92 09/03/16 01:00 86 09/03/16 00:00 84 I/O 09/02/16 09/02/16 09/02/16 09/03/16 09/03/16 09/03/16 07:00 15:00 23:00 07:00 15:00 23:00 Intake Total 200 ml 240 ml 480 ml 480 ml Output Total 700 ml 950 ml 800 ml 2200 ml Balance -500 ml -710 ml -320 ml -1720 ml Intake Oral 200 ml 240 ml 480 ml 480 ml Output Urine Total 700 ml 950 ml 800 ml 2200 ml # Voids 2 # Bowel Movements 0 2 0 Result Diagram: 09/03/1655409/03/16554 Objective Remarks GENERAL: sitting up in bed. Appears comfortable. Breathing comfortably. Appears in better spirits than yesterday. SKIN: Warm and dry. HEAD: Normocephalic. EYES: No scleral icterus. No injection or drainage. NECK: Supple, trachea midline. No JVD CARDIOVASCULAR: Regular rate and rhythm without murmurs, gallops, or rubs. RESPIRATORY: Breath sounds equal bilaterally. No accessory muscle use. GASTROINTESTINAL: Abdomen slightly distended. Hyperresonant. Nontender. Positive bowel sounds. No rebound or guarding. MUSCULOSKELETAL: No cyanosis, or edema. BACK: Nontender without obvious deformity. No CVA tenderness. A/P Assessment and Plan //Acute hypercapnic respiratory acidosis-resolved //COPD exacerbation //Home O2 dependency 2LPM/ NC //Emphysema //Smoker abuse //Pulmonary hypertension -Greater than 34-tfkv-nqos smoking history, patient counseled on smoking cessation -Obtain O2 sat greater than 92%, on BiPAP FiO2 0.40 07/13 O2 saturation 97%, will continue to wean -Nicotine patch, medium dose -Currently on BiPAP wean O2 to nasal cannula -CT pulmonary 08/31-negative angiogram -CXR- 08/31-emphysematous changes -09/02Decrease Methylprednisolone to 40 mg every 8 hours -cont Scheduled duo nebs every 6 hours, every 2 hours when necessary -PAP 59, avoid hypercarbic episodes -Continue levofloxacin -09/02. Shortness of breath much improved. Decrease Solu-Medrol. Plan for transition to prednisone. Pulmonology consulted for assistance regarding pulmonary hypertension.. 09/03. Breathing comfortably. On by mouth prednisone. Expect discharge home tomorrow. //Hypertension //History of SVT. //Possible Angina-resolved -home regimen Cardizem CD 120mg/day (home med). Increase Cardizem to 180 mg daily due to tachycardia on 09/02. -Maintain MAP greater than 65mmHg -Received one-time dose of aspirin in ED 08/31 -continue Cardizem at increased dose. Cardiology consultation appreciated. Follow-up with cardiology as outpatient. //Chronic Pain secondary to osteoarthritis -cont Lortab 10/325 every 4 hour when necessary (home med) //Constipation. lax ordered. //Prophylaxis: GI Prophylaxis: Protonix while on IV steroids DVT Prophylaxis-- SCDs, Lovenox Discharge Planning Possible discharge home tomorrow Agusto Uribe MD Sep 03, 2016 23:52
[2016-09-04] VITALS (18 sets, daily range): BP systolic 142–162; BP diastolic 80–84; PULSE 80–110; RESP 20–35; TEMP 97.1–99.1; O2SAT 90–95
[2016-09-04] MEDS: RESP: ALBUTEROL 2.5 MG/IPRATROPIUM 0.5 MG NEB (PRN) INH (02:40)
[2016-09-04] MEDS: CHLORHEXIDINE GLUCONATE 2 % 1 PACK (2 CLOTHS) TOP SCH (04:00)
[2016-09-04] MEDS: RESP: ALBUTEROL 2.5 MG/IPRATROPIUM 0.5 MG NEB (SCH) INH ×3 (08:56→16:12)
[2016-09-04] MEDS ORDERED: predniSONE 10 MG TAB PO SCH (09:00)
[2016-09-04] MEDS: REMOVE OLD PATCH TD SCH (09:00)
[2016-09-04] MEDS: DILTIAZEM-CD 180 MG CAP ER PO SCH (10:01)
[2016-09-04] MEDS: PANTOPRAZOLE SODIUM 40 MG VIAL IV SCH (10:01)
[2016-09-04] MEDS: BUDESONIDE-FORMOTEROL 160/4.5 MCG INHALER INH SCH (10:01)
[2016-09-04] MEDS: SENNOSIDES 8.6 MG TAB PO SCH (10:02)
[2016-09-04] MEDS: DOCUSATE SODIUM 100 MG CAP PO SCH (10:02)
--- NOTE | 2016-09-04 10:09 | HHI.FF ---
Face to Face Verification Diagnosis: (1) Hypercapnia with mixed acid-base disorder (2) COPD with exacerbation Physical Therapy Order: Evaluate and Treat Home Health Nursing Order: Oxygen administration education Nursing assessment with vital signs [employer] Ha[employer] Operator Order: To Evaluate: Living conditions/environment I have seen patient Tigre Can on 09/04/16. My clinical findings support the need for the requested home health care services because: Deconditioned w/ increased weakness I certify that my clinical findings support that this patient is homebound because: Hx COPD- exertion dyspnea/weakness Unsafe to leave home unassisted Agusto Uribe MD Sep 04, 2016 10:09
[2016-09-04] MEDS ORDERED: SENN8.6C PO (10:18)
[2016-09-04] MEDS ORDERED: OMEP20TA PO (10:18)
[2016-09-04] MEDS ORDERED: CARD180C5 PO (10:18)
[2016-09-04] MEDS ORDERED: LEVA750T PO (10:18)
[2016-09-04] MEDS ORDERED: SYMB160A INH (10:18)
[2016-09-04] MEDS ORDERED: DOCU1CAP39 PO (10:18)
[2016-09-04] MEDS ORDERED: IPRASOL INH ×2 (10:18)
[2016-09-04] MEDS ORDERED: PRED10PA2 PO (10:18)
--- NOTE | 2016-09-04 10:25 | HHI.PR ---
Subjective Remarks pt says he fels well. no cp. sob much btter. feels like going home. has neb machine and walker at home. Objective Vital Signs Date Time Temp Pulse Resp B/P Pulse Ox O2 Delivery O2 Flow Rate FiO2 09/04/16 08:56 95 Nasal Cannula 4.00 09/04/16 07:00 97.1 98 27 154/80 95 09/04/16 07:00 99 09/04/16 07:00 95 Nasal Cannula 4.00 Humidified 09/04/16 06:00 96 09/04/16 05:00 105 09/04/16 04:00 102 09/04/16 03:00 98 09/04/16 03:00 99.1 100 20 142/80 94 09/04/16 02:00 93 09/04/16 01:00 104 09/04/16 00:00 101 09/03/16 23:00 98.6 101 20 145/77 94 09/03/16 23:00 108 09/03/16 22:00 106 09/03/16 21:00 98 09/03/16 20:46 94 Nasal Cannula 4.00 09/03/16 20:00 91 09/03/16 20:00 95 Nasal Cannula 4.00 Humidified 09/03/16 20:00 98.8 96 22 147/76 95 09/03/16 19:00 92 09/03/16 18:04 84 09/03/16 17:00 92 09/03/16 16:00 98 09/03/16 15:30 98.8 96 20 129/70 93 09/03/16 15:00 91 09/03/16 14:00 97 09/03/16 13:00 101 09/03/16 12:20 98 09/03/16 11:23 97.9 96 20 137/65 95 09/03/16 11:22 108 09/03/16 10:36 102 I/O 09/03/16 09/03/16 09/03/16 09/04/16 09/04/16 09/04/16 07:00 15:00 23:00 07:00 15:00 23:00 Intake Total 480 ml 480 ml 340 ml Output Total 800 ml 2200 ml 1250 ml Balance -320 ml -1720 ml -910 ml Intake Oral 480 ml 480 ml 240 ml IV Total 100 ml Output Urine Total 800 ml 2200 ml 1250 ml # Voids 2 # Bowel Movements 2 0 0 Result Diagram: 09/03/1655409/03/16554 Objective Remarks GENERAL: sitting up in bed. Appears comfortable. Breathing comfortably. Appears in good spirits. SKIN: Warm and dry. HEAD: Normocephalic. EYES: No scleral icterus. No injection or drainage. NECK: Supple, trachea midline. No JVD CARDIOVASCULAR: Regular rate and rhythm without murmurs, gallops, or rubs. RESPIRATORY: Breath sounds equal bilaterally. No accessory muscle use. GASTROINTESTINAL: Abdomen slightly distended. Hyperresonant. Nontender. Positive bowel sounds. No rebound or guarding. MUSCULOSKELETAL: No cyanosis, or edema. BACK: Nontender without obvious deformity. No CVA tenderness. A/P Assessment and Plan //Acute hypercapnic respiratory acidosis-resolved //COPD exacerbation //Home O2 dependency 2LPM/ NC //Emphysema //Smoker abuse //Pulmonary hypertension -Greater than 35-cvfa-erlx smoking history, patient counseled on smoking cessation -Obtain O2 sat greater than 92%, on BiPAP FiO2 0.40 07/13 O2 saturation 97%, will continue to wean -Nicotine patch, medium dose -Currently on BiPAP wean O2 to nasal cannula -CT pulmonary 08/31-negative angiogram -CXR- 08/31-emphysematous changes -09/02Decrease Methylprednisolone to 40 mg every 8 hours -cont Scheduled duo nebs every 6 hours, every 2 hours when necessary -PAP 59, avoid hypercarbic episodes -Continue levofloxacin -09/02. Shortness of breath much improved. Decrease Solu-Medrol. Plan for transition to prednisone. Pulmonology consulted for assistance regarding pulmonary hypertension.. 09/03. Breathing comfortably. On by mouth prednisone. Expect discharge home tomorrow. 09/04 - doing well. dc home on abx , pred taper, symbicort, f/u PCP. has neb machine at home. o2 at home. now needs 3L NC continuous. //Hypertension //History of SVT. //Possible Angina-resolved -home regimen Cardizem CD 120mg/day (home med). Increase Cardizem to 180 mg daily due to tachycardia on 09/02. -Maintain MAP greater than 65mmHg -Received one-time dose of aspirin in ED 08/31 -continue Cardizem at increased dose. Cardiology consultation appreciated. Follow-up with cardiology as outpatient. //Chronic Pain secondary to osteoarthritis -cont Lortab 10/325 every 4 hour when necessary (home med) //Constipation. lax ordered. //Prophylaxis: GI Prophylaxis: Protonix while on IV steroids DVT Prophylaxis-- SCDs, Lovenox Discharge Planning DC home today with Agusto De Luna MD Sep 04, 2016 10:25
--- NOTE | 2016-09-04 10:26 | HHI.DS ---
Discharge Summary Admission Date Aug 31, 2016 at 19:07 Discharge Date: Sep 04, 2016 Admitting Diagnosis Hypercapnea and hypoxia secondary to COPD exacerbation (1) COPD with exacerbation ICD Code: J44.1 (2) Shortness of breath ICD Code: R06.02 (3) Hypercapnia with mixed acid-base disorder ICD Code: E87.4 Procedures no invasive procedures Brief History - From Admission The patient is 76-year-old male with past medical history of COPD on 2 liters home oxygen continuously, hypertension, active tobacco use who presented to [facility] ED with complaints of shortness of breath associated with chest pain. The patient states that his shortness of breath began six months ago and has been progressively getting worse. He also reports productive cough, wheezing. He tried to use his nebulizer treatments with no relief of his symptoms. The patient denies any associated symptoms. He was initially placed on 5 liters oxygen and ABG was performed which showed acute hypercapnic respiratory acidosis with a pH of 7.28, CO2 66, pAO2 84, bicarb 30 and saturation of 87%. The patient was subsequently placed on a BiPap at 12/5 with 50% FIO2 and his current saturation is 95%. He remains an active smoker where he smokes two packs per day and has been a smoker for over 50 years. He denies any orthopnea, PND or edema of lower extremities. Chest x-ray showed no acute abnormality. The patient also underwent a CT angiogram of the chest which was negative for PE; however, it showed severe central lobular bolus emphysema in the upper lobes in addition to moderate coronary artery calcifications. In the ER he received Solu-Medrol 125 mg IV push along with bronchodilator treatment, magnesium sulfate and 1 liter of normal saline in addition to aspirin. He had an echocardiogram in July of last year which showed an EF of 55-60% without any regional wall motion abnormalities and pulmonary hypertension with a PA pressure of 59 mmHg. 09/01 No chest pain overnight. EKG normal sinus rhythm without ST elevation. The patient was maintain on BiPAP overnight O2 sat 97-99%. Dyspnea resolved. Plan to wean to O2 via nasal cannula today CBC/BMP: 09/03/16 0555 09/03/16 0555 Significant Findings Laboratory Tests Test 09/02/16 09/03/16 09/03/16 05:55 05:55 16:40 Red Blood Count 4.35 MIL/MM3 4.25 MIL/MM3 (4.50-5.90) (4.50-5.90) Creatinine 0.59 MG/DL 0.57 MG/DL (0.60-1.30) (0.60-1.30) Random Glucose 145 MG/DL 145 MG/DL (74-106) (74-106) Neutrophils (%) (Auto) 89.6 % (16.0-70.0) Lymphocytes (%) (Auto) 3.8 % (9.0-44.0) Neutrophils # (Auto) 8.1 TH/MM3 (1.8-7.7) Lymphocytes # (Auto) 0.3 TH/MM3 (1.0-4.8) Neutrophils % (Manual) 72 % (16-70) Band Neutrophils % 16 % (0-6) Neutrophils # (Manual) 8.0 TH/MM3 (1.8-7.7) Carbon Dioxide Level 34.6 MEQ/L (21.0-32.0) Anion Gap 4 MEQ/L (5-15) Blood Gas HCO3 32 mmol/L (22-26) Blood Gas Base Excess 7.8 mmol/L (-2-2) Arterial Blood pH 7.44 (7.380-7.420) Arterial Blood Partial 48 mmHg (38-42) Pressure CO2 Imaging Last Impressions Abdomen X-Ray 09/02/16 0000 Signed Impressions: Service Date/Time: Friday, September 02, 2016 17:15 - CONCLUSION: Nonspecific bowel gas pattern. Jan Monson MD CT Angiography 08/31/16 1645 Signed Impressions: Service Date/Time: Wednesday, August 31, 2016 18:20 - CONCLUSION: 1. Negative for pulmonary embolus. 2. Severe centrilobular and bullous emphysema especially in the upper lungs. 3. Moderate coronary artery calcifications. José Miguel Ley MD Chest X-Ray 08/31/16 1430 Signed Impressions: Service Date/Time: Wednesday, August 31, 2016 14:48 - CONCLUSION: Normal examination for a patient of this age. No significant change has occurred. Jan Monson MD Hospital Course Patient was treated with IV steroids, DuoNeb's, antibiotics with improvement. Negative CT angiogram for PE. He was discharged with prednisone taper, antibiotics, PBI for prevention of reflux cough, duo nebs. He experienced tachycardia, and chronic diltiazem was increased 240 mg extended release daily. //Acute hypercapnic respiratory acidosis-resolved //COPD exacerbation //Home O2 dependency 2LPM/ NC //Emphysema //Smoker abuse //Pulmonary hypertension -Greater than 33-yaco-pmhl smoking history, patient counseled on smoking cessation -Obtain O2 sat greater than 92%, on BiPAP FiO2 0.40 07/13 O2 saturation 97%, will continue to wean -Nicotine patch, medium dose -Currently on BiPAP wean O2 to nasal cannula -CT pulmonary 08/31-negative angiogram -CXR- 08/31-emphysematous changes -09/02Decrease Methylprednisolone to 40 mg every 8 hours -cont Scheduled duo nebs every 6 hours, every 2 hours when necessary -PAP 59, avoid hypercarbic episodes -Continue levofloxacin -09/02. Shortness of breath much improved. Decrease Solu-Medrol. Plan for transition to prednisone. Pulmonology consulted for assistance regarding pulmonary hypertension.. 09/03. Breathing comfortably. On by mouth prednisone. Expect discharge home tomorrow. 09/04 - doing well. dc home on abx , pred taper, symbicort, f/u PCP. has neb machine at home. o2 at home. now needs 3L NC continuous. //Hypertension //History of SVT. //Possible Angina-resolved -home regimen Cardizem CD 120mg/day (home med). Increase Cardizem to 180 mg daily due to tachycardia on 09/02. -Maintain MAP greater than 65mmHg -Received one-time dose of aspirin in ED 08/31 -continue Cardizem at increased dose. Cardiology consultation appreciated. Follow-up with cardiology as outpatient. //Chronic Pain secondary to osteoarthritis -cont Lortab 10/325 every 4 hour when necessary (home med) //Constipation. lax ordered. //Prophylaxis: GI Prophylaxis: Protonix while on IV steroids DVT Prophylaxis-- SCDs, Lovenox Pt Condition on Discharge: Good Discharge Disposition: Disch w/ Home Health Serv Discharge Time: <= 30 minutes Discharge Instructions DIET: Follow Instructions for: Heart Healthy Diet Activities you can perform: Regular-No Restrictions Follow up Referrals: Cardiology - 1 Month with Kassandra Fragoso MD PCP Follow-up - 1 Week Pulmonology - 1 Week New Medications: Budesonide-Formoterol Inh (Symbicort Inh) 160-4.5 Mcg/Act Aero 1 PUFF INH Q12HR #1 Ref 0 INHALER Levofloxacin (Levaquin) 750 Mg Tab 750 MG PO DAILY Infection #5 Ref 0 TAB Omeprazole (Omeprazole) 20 Mg Tab 20 MG PO DAILY possibly reflux cough #30 Ref 0 TAB Prednisone (48) 10 mg tab Dose Pack (Prednisone (48) 10 mg tab Dose Pack) 10 Mg Dspk 10 MG PO DIRECTED please resume home dose of prednisone after completion of dose pack Inflammation #1 Ref 0 DSPK Sennosides (Senna) 8.6 Mg Cap 8.6 MG PO HS Constipation Days 30 Ref 0 CAP Diltiazem CD 24 HR (Cardizem CD 24 HR) 180 Mg Caper 240 MG PO DAILY heart Days 30 CAP Docusate Sodium (Dok) 100 Mg Cap 100 MG PO BID constipation Days 30 CAP Ipratropium-Albuterol Neb (Duoneb) 0.5-2.5 Mg/3 Ml Neb 1 AMPULE INH QID NEB COPD Days 30 ML Ipratropium-Albuterol Neb (Duoneb) 0.5-2.5 Mg/3 Ml Neb 1 AMPULE INH Q2HR NEB PRN WHEEZING Days 30 ML Continued Medications: Hydrocodone-Acetaminophen (Lortab) 10-325 Mg Tab 1 TAB PO Q4H PRN PAIN Ref 0 TAB Prednisone (Prednisone) 5 Mg Tab 5 MG PO DAILY Ref 0 TAB Discontinued Medications: Diltiazem CD 24 HR (Cardizem CD 24 HR) 120 Mg Caper 120 MG PO DAILY #30 CAP Agusto Uribe MD Sep 04, 2016 10:26
[2016-09-04] MEDS ORDERED: OXYGENTANK NAS.CANULA (10:27)
[2016-09-04] MEDS ORDERED: DILTIAZEM HCL 30 MG TAB PO ONE (11:00)
[2016-09-05] MEDS ORDERED: DILTIAZEM-CD 240 MG CAP ER PO SCH (09:00)
== END 2016-09-04 16:43 | disposition home or self-care (01) | DRG 190 ==
LOC: NEPE 14:14 → NEDA 19:07 → NEDH 23:08 → N03B 09-01 02:25 → HCPC 09-02 01:20
PROVIDERS: ADMIT Internal Medicine; ATTEND Internal Medicine
PROC: 5A09457 Assistance with Respiratory Ventilation, 24-96 Consecutive Hours, Continuous Positive Airway Pressure (ICD-10-PCS; principal; 2016-08-31)
DX: J44.1 Chronic obstructive pulmonary disease with (acute) exacerbation (principal); J96.01 Acute respiratory failure with hypoxia; J96.02 Acute respiratory failure with hypercapnia; E87.4 Mixed disorder of acid-base balance; I27.2 Other secondary pulmonary hypertension; E78.5 Hyperlipidemia, unspecified; G89.29 Other chronic pain; I10 Essential (primary) hypertension; I25.119 Atherosclerotic heart disease of native coronary artery with unspecified angina pectoris; J43.2 Centrilobular emphysema; J45.909 Unspecified asthma, uncomplicated; K59.00 Constipation, unspecified; M19.90 Unspecified osteoarthritis, unspecified site; Z99.81 Dependence on supplemental oxygen; F17.210 Nicotine dependence, cigarettes, uncomplicated
CPT/HCPCS: 36600; 71010; 71275; 74000; 80048; 80053; 82550; 82552; 82805; 83605; 83735; 83880; 84100; 84484; 85007; 85025; 85027; 85379; 85610; 85730; 87040; 87641; 87804; 90471; 90472; 90686; 90732; 93005; 94002; 94003; 94150; 94620; 94640; 94664; 96374; 96375; C9113; G0008; G0009; J1650; J1956; J2920; J2930; J3475; J7030; J7512; J7613; Q2038; Q9967